=== PATIENT | female | born 1940 | race Caucasian/White ===

== ENCOUNTER 2016-11-12 15:22 | Emergency (ER) | payer MEDICARE, OTHER ==
[2016-11-12] MEDS ORDERED: ARZOL Silver Nitrate Applicator TP ONE ×3 (15:37→16:04)
[2016-11-12] MEDS ORDERED: XYLOCAINE HCl Viscous ONE (15:37)
--- NOTE | 2016-11-12 15:43 | ERPHSYRPT ---
- History of Present Illness Time Seen by Provider: 11/12/16 15:30 Source: patient Exam Limitations: no limitations Patient Subjective Stated Complaint: bit tongue at 1300 at lunch Triage Nursing Assessment: bit tongue at lunch at 1300. dried and fresh blood in mouth. on coumadin Physician History: accidently bit her tongue 2 hrs ago; now bleeding will not stop; no prior hx; on coumadin; no recent changes in dose; gums have been bleeding some when brush otherwise no bleeding Timing/Duration: today, hour(s) (2) Severity: mild Modifying Factors: Improves With: eating Associated Symptoms: denies symptoms Allergies/Adverse Reactions: adhesive tape Allergy (Verified 11/12/16 15:31) bacitracin [From Neosporin ([id number])] Allergy (Verified 11/12/16 15:31) ciprofloxacin [From Cipro] Allergy (Verified 11/12/16 15:31) neomycin [From Neosporin ([id number])] Allergy (Verified 11/12/16 15:31) Penicillins Allergy (Verified 11/12/16 15:31) polymyxin B [From Neosporin ([id number])] Allergy (Verified 11/12/16 15:31) Sulfa (Sulfonamide Antibiotics) Allergy (Verified 11/12/16 15:31) Home Medications: Calcium Carbonate/Vitamin D3 [Calcium 600 + Vit D Caplet] 1 each PO BID [History] Diltiazem HCl [Diltiazem ER] 120 mg PO HS 11/12/16 [History] Escitalopram Oxalate 20 mg PO HS 11/12/16 [History] Folic Acid 0.4 mg PO DAILY 11/12/16 [History] Lamotrigine [Lamotrigine ER] 50 mg PO HS 11/12/16 [History] Losartan Potassium 25 mg PO HS 11/12/16 [History] Metoprolol Tartrate 25 mg [Lopressor 25MG Tab] 25 mg PO BID 11/12/16 [ History] Warfarin Sodium 5 mg [Coumadin 5 MG] 5 mg PO UD 11/12/16 [History] Warfarin Sodium 5 mg [Coumadin 5 MG] 7.5 mg PO UD 11/12/16 [History] Hx Tetanus, Diphtheria Vaccination/Date Given: Yes Hx Influenza Vaccination/Date Given: No Hx Pneumococcal Vaccination/Date Given: Yes Immunizations Up to Date: Yes - Review of Systems Constitutional: No Symptoms Eyes: No Symptoms Ears, Nose, & Throat: Other (bleeding gums when brush teeth), No Ear Pain, No Tinnitus, No Epistaxis, No Mouth Swelling, No Throat Pain Respiratory: No Cough, No Dyspnea, No Wheezing Cardiac: No Chest Pain, No Palpitations, No Syncope Abdominal/Gastrointestinal: No Abdominal Pain, No Nausea, No Vomiting, No Diarrhea Genitourinary Symptoms: No Symptoms, No Dysuria, No Hematuria, No Urgency, No Vaginal Bleeding Musculoskeletal: Arthralgias, No Fall, No Injury Skin: No Cellulitis, No Decubiti, No Rash Neurological: No Symptoms Psychological: No Symptoms Endocrine: No Symptoms Hematologic/Lymphatic: Anemia, Easy Bleeding, Gum Bleeding, Easy Bruising Immunological/Allergic: No Symptoms - Past Medical History Pertinent Past Medical History: Yes Cardiac History: Arrhythmia, High Cholesterol, Hypertension Other Medical History: sleep apnea. skin cancer - Past Surgical History Past Surgical History: Yes Cardiac: Pacemaker Gastrointestinal: Appendectomy Female Surgical History: Hysterectomy Other Surgical History: bladder tie. tonsils/adnoids - Social History Smoking Status: Never smoker Exposure to second hand smoke: No Alcohol Use: None Drug Use: none Patient Lives Alone: Yes Significant Family History: no pertinent family hx - Nursing Vital Signs Nursing Vital Signs: Initial Vital Signs Temperature 98.2 F Temperature Source Oral Pulse Rate 110 Respiratory Rate 20 Blood Pressure [Right Arm] 152/70 Pain Intensity 0 - Physical Exam General Appearance: mild distress (bleeding tongue), alert, obese Eye Exam: PERRL/EOMI, No photophobia Ears, Nose, Throat Exam: TMs normal, pharynx normal, moist mucous membranes, other (bleeding from small PW distal right tongue dorsal;) Neck Exam: normal inspection, non-tender, supple, No JVD Respiratory Exam: normal breath sounds, lungs clear, airway intact, No chest tenderness, No respiratory distress Cardiovascular Exam: regular rate/rhythm, normal heart sounds, normal peripheral pulses, capillary refill 2-3 sec, No murmur Gastrointestinal/Abdomen Exam: soft, normal bowel sounds, No guarding Pelvic Exam: deferred Rectal Exam: deferred Extremity Exam: normal range of motion, pedal edema (trace), No javier's sign Neurologic Exam: alert, oriented x 3, cooperative, analysis manager II-XII nml as tested, normal mood/affect, nml cerebellar function, nml station & gait Skin Exam: normal color, warm, dry, No rash, No petechiae, No cyanosis SpO2 Interpretation: normal SpO2: 95 Oxygen Delivery: Room Air - Course Nursing assessment & vital signs reviewed: Yes Ordered Tests: Active Orders 24 hr Category Date Time Status CBC Stat Lab 11/12/16 16:00 Completed Medication Summary Discontinued Medications Generic Name Dose Route Start Last Admin Trade Name Brady PRN Reason Stop Dose Admin Lidocaine HCl Confirm 11/12/16 15:37 Xylocaine Hcl Viscous * Administered 11/12/16 15:38 Dose 5 ml .ROUTE .STK-MED ONE Lidocaine HCl 5 ml 11/12/16 16:05 11/12/16 16:05 Xylocaine Viscous 2% 20 Ml Cup PO 11/12/16 16:06 5 ml STAT ONE Administration Silver Nitrate Confirm 11/12/16 15:37 Arzol Silver Nitrate Applicator Administered 11/12/16 15:38 Dose 2 pkt TP .STK-MED ONE Silver Nitrate Confirm 11/12/16 15:50 Arzol Silver Nitrate Applicator Administered 11/12/16 15:51 Dose 2 pkt TP .STK-MED ONE Silver Nitrate 1 pkt 11/12/16 16:04 11/12/16 16:05 Arzol Silver Nitrate Applicator TP 11/12/16 16:05 1 pkt STAT ONE Administration Lab/Rad Data: Laboratory Result Diagrams 11/12/16 16:00 Laboratory Results 11/12/16 Range/Units 16:00 WBC 4.7 (4.0-10.5) K/mm3 RBC 4.16 (4.1-5.4) M/mm3 Hgb 12.7 (12.0-16.0) gm/dl Hct 39.0 (35-47) % MCV 93.8 (78-100) fl MCH 30.5 (26-32) pg MCHC 32.6 (32-36) g/dl RDW 13.4 (11.5-14.0) % Plt Count 137 L (150-450) K/mm3 MPV 9.0 (6-9.5) fl reviewed - Progress Progress: improved, re-examined (after treatment) Progress Note: 11/12/16 15:42 applied viscous xylocaine and will cautery as direct pressure did not work 11/12/16 16:05 had patient rinse with cold water; identified bleeding site; direct pressure did not stop bleeding; applied viscous xylocaine for local anesthesia; then applied silver nitrate direct; bleeding stopped; will observe and check INR; it is 4.83; will have her hold her coumadin and follow up with her LMD for medication adjustment 11/12/16 16:19 BCP H?H = 12.7/ 39; instructions given; rechecked and no bleeding Counseled pt/family regarding: lab results, diagnosis, need for follow-up - Departure Time of Disposition: 16:20 Departure Disposition: Home Clinical Impression: Elevated INR, Hemorrhage of tongue Condition: Stable Critical Care Time: No Referrals: DYLON KING [Primary Care Provider] - Additional Instructions: call LMD in am and get repeat INR; cool liquid diet 24 ice; apply ice; hold coumadin until talk to LMD in am Follow-up with family doctor as directed. Call for appointment. Return if any problems. If you smoke please stop. Call or follow up with your family doctor for assistance if you need it to stop. Please wear your seatbelt when driving. Have a nice day. Thank you for allowing us to participate in your care today. :o) Dr Andrea Devine
[2016-11-12] MEDS ORDERED: XYLOCAINE VISCOUS 2% 20 ML CUP PO ONE (16:05)
[2016-11-12 16:08] LABS: Mean Cell Volume 93.8 fl (78-100); Mean Corpuscular Hemoglobin 30.5 pg (26-32); Platelet Count 137 K/mm3 (150-450); Red Blood Count 4.16 M/mm3 (4.1-5.4); Red Cell Distribution Width 13.4 % (11.5-14.0); White Blood Count 4.7 K/mm3 (4.0-10.5)
[2016-11-12 16:32] VITALS: BP 133/99; PULSE 76; O2SAT 96
== END 2016-11-12 16:32 | disposition home or self-care (01) ==
LOC: ED 15:22
DX: R79.1 Abnormal coagulation profile (principal); K14.8 Other diseases of tongue; Z79.01 Long term (current) use of anticoagulants; Z95.0 Presence of cardiac pacemaker
CPT/HCPCS: 36415; 85027; 99282

== ENCOUNTER 2018-09-18 02:49 | Emergency (ER) | payer MEDICARE, OTHER ==
--- NOTE | 2018-09-18 03:31 | ERPHSYRPT ---
- History of Present Illness Time Seen by Provider: 09/18/18 03:15 Source: patient Exam Limitations: no limitations Patient Subjective Stated Complaint: pt states she hit her leg on a picture frame directly on an area that she has had trouble healing Triage Nursing Assessment: pt alert and oriented, answers questions approp. respirations nonlabored with lungs cta. pt ambulatory with steady gait noted. 2- 3+ edema noted to bilat lower ext. small sken tears to outer lt lower leg with serosang fluid draining. pedal pulse wnl. Physician History: 78 y/o white female with chronic venous stasis dz and lymphedema presents approx 1.5 hours after abrasion to left lateral lower leg. pts tetanus not utd. pt concerned because clear fluid exuding from site. pt is on lasix. pt has not seen a vascular surgeon or used pressure stockings in the past. pt states she is allergic to polymyxin b in neosporin but can use bacitracin ointment Timing/Duration: today Quality: other (leaking clear fluid) Severity: mild Location: extremities (left lower ext) Possible Causes: other (scraped with metal picture frame) Associated Symptoms: denies symptoms Allergies/Adverse Reactions: adhesive tape Allergy (Verified 11/12/16 15:31) bacitracin [From Neosporin ([id number])] Allergy (Verified 11/12/16 15:31) ciprofloxacin [From Cipro] Allergy (Verified 11/12/16 15:31) neomycin [From Neosporin ([id number])] Allergy (Verified 11/12/16 15:31) Penicillins Allergy (Verified 11/12/16 15:31) polymyxin B [From Neosporin ([id number])] Allergy (Verified 11/12/16 15:31) Sulfa (Sulfonamide Antibiotics) Allergy (Verified 11/12/16 15:31) Home Medications: Calcium Carbonate/Vitamin D3 [Calcium 600 + Vit D Caplet] 1 each PO BID [History] Escitalopram Oxalate 20 mg PO HS 11/12/16 [History] Folic Acid 0.4 mg PO DAILY 11/12/16 [History] Lamotrigine [Lamotrigine ER] 50 mg PO HS 11/12/16 [History] Losartan Potassium 25 mg PO HS 11/12/16 [History] Metoprolol Tartrate 25 mg [Lopressor 25MG Tab] 25 mg PO BID 11/12/16 [ History] Warfarin Sodium 5 mg [Coumadin 5 MG] 5 mg PO UD 11/12/16 [History] Warfarin Sodium 5 mg [Coumadin 5 MG] 7.5 mg PO UD 11/12/16 [History] dilTIAZem HCl [Diltiazem ER] 120 mg PO HS 11/12/16 [History] Hx Tetanus, Diphtheria Vaccination/Date Given: No Hx Influenza Vaccination/Date Given: Yes Hx Pneumococcal Vaccination/Date Given: Yes Immunizations Up to Date: No - Review of Systems Constitutional: No Symptoms Eyes: No Symptoms Ears, Nose, & Throat: No Symptoms Respiratory: No Symptoms Cardiac: No Symptoms Abdominal/Gastrointestinal: No Symptoms Genitourinary Symptoms: No Symptoms Musculoskeletal: No Symptoms Skin: Other (abrasion) Neurological: No Symptoms Psychological: No Symptoms Endocrine: No Symptoms Hematologic/Lymphatic: No Symptoms Immunological/Allergic: No Symptoms All Other Systems: Reviewed and Negative - Past Medical History Pertinent Past Medical History: Yes Neurological History: No Pertinent History ENT History: No Pertinent History Cardiac History: Arrhythmia, High Cholesterol, Hypertension Respiratory History: No Pertinent History Endocrine Medical History: No Pertinent History Musculoskeletal History: No Pertinent History GI Medical History: No Pertinent History History: No Pertinent History Psycho-Social History: Depression Female Reproductive Disorders: No Pertinent History Other Medical History: sleep apnea. skin cancer - Past Surgical History Past Surgical History: Yes Neuro Surgical History: No Pertinent History Cardiac: No Pertinent History, Pacemaker Respiratory: No Pertinent History Gastrointestinal: Appendectomy Genitourinary: No Pertinent History Musculoskeletal: Orthopedic Surgery Female Surgical History: Hysterectomy Other Surgical History: rt total knee. bladder tie. tonsils/adnoids - Social History Smoking Status: Never smoker Exposure to second hand smoke: No Alcohol Use: None Drug Use: none Patient Lives Alone: Yes Significant Family History: no pertinent family hx - Nursing Vital Signs Nursing Vital Signs: Initial Vital Signs Temperature 98.0 F 09/18/18 02:58 Pulse Rate 86 09/18/18 02:58 Respiratory Rate 20 09/18/18 02:58 Blood Pressure 158/102 09/18/18 02:58 O2 Sat by Pulse Oximetry 95 09/18/18 02:58 Pain Scale Pain Intensity 2 - Physical Exam General Appearance: no apparent distress, alert, anxiety Eye Exam: PERRL/EOMI, eyes nml inspection Ears, Nose, Throat Exam: normal ENT inspection, moist mucous membranes Neck Exam: normal inspection, non-tender, supple, full range of motion Respiratory Exam: normal breath sounds, lungs clear, airway intact, No chest tenderness, No respiratory distress, No accessory muscle use, No rhonchi, No wheezing, No stridor Cardiovascular Exam: regular rate/rhythm, normal heart sounds, normal peripheral pulses Gastrointestinal/Abdomen Exam: soft, normal bowel sounds, No tenderness, No guarding, No rebound Pelvic Exam: not done Rectal Exam: not done Back Exam: normal inspection, normal range of motion, No CVA tenderness, No vertebral tenderness Extremity Exam: normal range of motion, pelvis stable, pedal edema (bilat; palpable bilat pedal pulses. bilat chronic venous stasis dz of ankles; bilat lymphedema with left lateral ankle abrasion. lymph fluid present at abrasion site. no bleeding), other (no infection/cellulitis) Neurologic Exam: alert, oriented x 3, cooperative, deck cadet II-XII nml as tested, normal mood/affect, nml station & gait Skin Exam: abrasion, other (see above) Lymphatic Exam: No adenopathy SpO2 Interpretation: normal SpO2: 95 Oxygen Delivery: Room Air - Course Nursing assessment & vital signs reviewed: Yes - Progress Progress: improved Counseled pt/family regarding: diagnosis, need for follow-up - Departure Time of Disposition: 03:36 Departure Disposition: Home Clinical Impression: Abrasion, Lymphedema, Chronic venous stasis dermatitis of both lower extremities Condition: Stable Critical Care Time: No Referrals: DYLON KING [Primary Care Provider] - Additional Instructions: keep abrasion site clean daily. cover with nonstick bandage and wrap leg with tianna wrap. keep both legs elevated above level of heart when not ambulating. see a vascular surgeon to address your chronic venous stasis disease and lympedema issues.
[2018-09-18] MEDS ORDERED: Adacel Vial IM ONE (03:42)
[2018-09-18] MEDS: Adacel Vial IM ONE (03:43)
[2018-09-18 03:54] VITALS: BP 137/71; PULSE 74; O2SAT 94
== END 2018-09-18 04:20 | disposition home or self-care (01) ==
LOC: ED 02:49
DX: S80.812A Abrasion, left lower leg, initial encounter (principal); I87.2 Venous insufficiency (chronic) (peripheral); I89.0 Lymphedema, not elsewhere classified; Z79.01 Long term (current) use of anticoagulants; Z79.899 Other long term (current) drug therapy; W22.8XXA Striking against or struck by other objects, initial encounter; Y92.009 Unspecified place in unspecified non-institutional (private) residence as the place of occurrence of the external cause
CPT/HCPCS: 90471; 90715; 99283